=== PATIENT | male | born 1985 | race Two or more races ===

== ENCOUNTER 2019-05-11 04:27 | Emergency (ER) | payer OTHER ==
--- NOTE | 2019-05-11 05:00 | PDOC ---
History of Present Illness - General Chief Complaint: Pain Stated Complaint: VOMITING Time Seen by Provider: 05/11/19 04:59 History Source: Patient Exam Limitations: No Limitations - History of Present Illness Initial Comments: 05/11/19 05:15 33 year old male c/o upper abdominal discomfort, nausea , vomiting and diarrhea since last night, patient reports that he has uri symptoms for a week and has a cough. c/o left lower rib pain. denies fever/ chills. Patient BIB EMS for evaluation. denies chest pain, diaphoresis. Treatment Prior to Arrive: improves with: other (EKG: Sinus tachycardia : 116bpm) Past History - Travel Traveled outside of the country in the last 30 days: Yes Close contact w/someone who was outside of country & ill: No - Past Medical History Allergies/Adverse Reactions: Allergies Allergy/AdvReac Type Severity Reaction Status Date / Time No Known Allergies Allergy Verified 05/11/19 05:01 - Psycho Social/Smoking Cessation Hx Smoking Status: No Smoking History: Never smoked Review of Systems - Review of Systems Able to Perform ROS?: Yes Is the patient limited Slovenian proficient: No Constitutional: No: Symptoms Reported, See HPI, Chills, Diaphoresis, Fever, Loss of Appetite, Malaise, Night Sweats, Weakness, Weight Stable, Unintentional Wgt. Loss, Unexplained wgt Loss, Other Cardiac (ROS): Yes: Other (rib pain) ABD/GI: Yes: Nausea, Vomiting, Abdominal cramping *Physical Exam - Vital Signs 05/11/19 05:28 Vital Signs Temp Pulse Resp BP Pulse Ox 97.8 F 92 H 20 143/73 97 05/11/19 04:27 05/11/19 04:27 05/11/19 04:27 05/11/19 04:27 05/11/19 04:27 - Physical Exam General Appearance: Yes: Appropriately Dressed Respiratory/Chest: positive: Chest Tender (left lateral rib tenderness (bet 8-10 )), Lungs Clear, Normal Breath Sounds Cardiovascular: positive: Regular Rhythm, Regular Rate Gastrointestinal/Abdominal: positive: Soft, Increased Bowel Sounds. negative: Tender Musculoskeletal: positive: Normal Inspection Extremity: positive: Normal Capillary Refill, Normal Inspection, Normal Range of Motion Integumentary: positive: Normal Color, Dry, Warm Neurologic: positive: Fully Oriented, Alert, Normal Mood/Affect Heart Score/ECG Review - ECG Intrepretation Rhythm: Regular Rhythm Comment:: 05/11/19 06:18 NSR: 78 bpm ED Treatment Course - LABORATORY CBC & Chemistry Diagram: 05/11/19 05:35 05/11/19 05:35 ED Progress Note - Progress Note Progress Note: 05/11/19 05:30 A: gastroenteritis P: CBC CMP Normal saline zofran famotidine/ Medical Decision Making - Medical Decision Making 05/11/19 06:16 patient reports nausea . will give reglan 05/11/19 06:40 patient is currently tolerating PO. reports feeling better. will d/c home. Discharge - Discharge Information Problems reviewed: Yes Clinical Impression/Diagnosis: Gastroenteritis Condition: Fair Disposition: HOME - Follow up/Referral Referrals: Cecil Evans [Primary Care Provider] - - Patient Discharge Instructions Patient Printed Discharge Instructions: Gastroenteritis Diet Additional Instructions: Drink plenty of fluids start a BRAT ( bananas, rice apples toast) follow up with your doctor return to the ER if symptoms worsen - Post Discharge Activity Work/Back to School Note: Back to Work
[2019-05-11 05:01] VITALS: TEMP 97.8; BMI 26.4
[2019-05-11] MEDS ORDERED: ACETAMINOPHEN 325 MG TABLET (FP) PO ONE (05:12)
[2019-05-11] MEDS ORDERED: FAMOTIDINE 20 MG/50 ML IVPB 20 MG/50 ML MG IVPB ONE ×2 (05:12→05:19)
[2019-05-11] MEDS ORDERED: ONDANSETRON 4 MG/2 ML VIAL IVPB ONE (05:12)
[2019-05-11] MEDS ORDERED: SODIUM CHLORIDE 1,000 ML IV STA (05:12)
--- NOTE | 2019-05-11 05:17 | PDOC ---
*Physical Exam - Vital Signs Last Vital Signs Temp Pulse Resp BP Pulse Ox 97.8 F 92 H 20 143/73 97 05/11/19 04:27 05/11/19 04:27 05/11/19 04:27 05/11/19 04:27 05/11/19 04:27 ED Treatment Course - LABORATORY CBC & Chemistry Diagram: 05/11/19 05:35 05/11/19 05:35 Medical Decision Making - Medical Decision Making 05/11/19 05:17 Patient seen by the advanced practice provider under my direct supervision. Ancillary testing reviewed as necessary. I agree with plan as outlined by the advanced practice provider. Discharge - Discharge Information Problems reviewed: Yes Clinical Impression/Diagnosis: Gastroenteritis Condition: Fair Disposition: HOME - Follow up/Referral Referrals: Cecil Evans [Primary Care Provider] - - Patient Discharge Instructions Patient Printed Discharge Instructions: Gastroenteritis Diet Additional Instructions: Drink plenty of fluids start a BRAT ( bananas, rice apples toast) follow up with your doctor return to the ER if symptoms worsen - Post Discharge Activity Work/Back to School Note: Back to Work
[2019-05-11] MEDS ORDERED: ONDANSETRON 4 MG/2 ML VIAL ONE (05:19)
[2019-05-11] MEDS ORDERED: ACETAMINOPHEN 325 MG TABLET (FP) ONE (05:19)
[2019-05-11] MEDS ORDERED: METOCLOPRAMIDE HCL INJECTION 10 MG/2 ML VIAL IVPB ONE (06:10)
[2019-05-11 06:11] LABS: ALBUMIN 4.2 g/dl (3.4-5.0); BILIRUBIN,TOTAL 0.6 mg/dL (0.2-1); BLOOD UREA NITROGEN 14.6 mg/dL (7-18); CALCIUM 9.2 mg/dL (8.5-10.1); CREATININE 1.1 mg/dL (0.55-1.3); POTASSIUM 4.2 mmol/L (3.5-5.1); TOT PROT 8.3 g/dl (6.4-8.2)
[2019-05-11] MEDS ORDERED: METOCLOPRAMIDE HCL INJECTION 10 MG/2 ML VIAL ONE (06:14)
[2019-05-11 06:25] LABS: BASO % 0.4 % (0-2.0); EOS % 0.9 % (0-4.5); HEMATOCRIT 45.8 % (35.4-49); HEMOGLOBIN 16.7 GM/dL (11.7-16.9); LYMPH % 13.4 % (8-40); MCH 32.8 pg (25.7-33.7); MCHC 36.4 g/dl (32.0-35.9); MEAN CELL VOLUME 90.1 fl (80-96); MEAN PLT VOLUME 7.8 fl (7.5-11.1); MONO % 6.3 % (3.8-10.2); PLATELET COUNT 320 K/MM3 (134-434); RBC 5.08 M/mm3 (4.00-5.60); RDW 12.9 % (11.9-15.9)
[2019-05-11 07:01] VITALS: BP 135/76; PULSE 84
--- NOTE | 2019-05-11 12:22 | EKG ---
Test Reason : Blood Pressure : / mmHG Vent. Rate : 078 BPM Atrial Rate : 078 BPM P-R Int : 158 ms QRS Dur : 076 ms QT Int : 380 ms P-R-T Axes : 052 019 023 degrees QTc Int : 433 ms NORMAL SINUS RHYTHM NORMAL ECG NO PREVIOUS ECGS AVAILABLE Confirmed by JACOB GOULD, CHANDLER ([id number]) on 05/11/2019 12:22:27 PM Referred By: Confirmed By:CHANDLER JAMES MD
== END 2019-05-11 06:59 | disposition home or self-care (01) ==
LOC: JER 04:27
PROC: 3E033GC Introduction of Other Therapeutic Substance into Peripheral Vein, Percutaneous Approach (ICD-10-PCS; principal; 2019-05-11)
DX: K52.9 Noninfective gastroenteritis and colitis, unspecified (principal)
CPT/HCPCS: 36415; 80053; 85025; 93005; 93010; 99283-25; J7030

== ENCOUNTER 2019-06-18 01:06 | Emergency (ER) | payer OTHER ==
[2019-06-18 01:58] VITALS: BP 116/83; PULSE 89; TEMP 98.7; BMI 31.2
--- NOTE | 2019-06-18 02:39 | PDOC ---
Attending Attestation - ED Attending Attestation I have performed the following: I have examined & evaluated the patient, The case was reviewed & discussed with the resident, I agree w/resident's findings & plan - HPI HPI: 06/18/19 02:38 P injured self; he was drunk and fell down some steps. - Physicial Exam PE: 06/18/19 06:00 Ambulating about the ER; A+Ox3 Pt in NAD Pt has a left eyebrow laceration. No other head or neck injuiry. - Medical Decision Making 06/18/19 04:46 Referring Physician: MARY WITT Patient Name: NACHO VOGT THIS IS A PRELIMINARY REPORT FROM [facility] DATE OF SERVICE: 2019-06-18 02:53:47 IMAGES: [id number] EXAM: HEAD CT WITHOUT CONTRAST HISTORY: Rule out bleed or fracture COMPARISON: None. FINDINGS: The ventricular system is midline and nondilated. The sulcal pattern is normal for the patient's age. There is no bleed, mass, extra-axial fluid collection or mass effect. No skull fracture or skull lesion is identified. The mastoid air cells are clear. Multifocal sinus mucosal thickening is noted predominating in the right maxillary sinus which could represent chronic sinusitis. IMPRESSION: No acute traumatic pathology. Possible chronic sinusitis. 06/18/19 04:47 Patient Name: NACHO VOGT THIS IS A PRELIMINARY REPORT FROM [facility] DATE OF SERVICE: 2019-06-18 02:53:47 IMAGES: [id number] EXAM: HEAD CT WITHOUT CONTRAST HISTORY: Rule out bleed or fracture COMPARISON: None. FINDINGS: The ventricular system is midline and nondilated. The sulcal pattern is normal for the patient's age. There is no bleed, mass, extra-axial fluid collection or mass effect. No skull fracture or skull lesion is identified. The mastoid air cells are clear. Multifocal sinus mucosal thickening is noted predominating in the right maxillary sinus which could represent chronic sinusitis.
--- NOTE | 2019-06-18 05:13 | PDOC ---
History of Present Illness - General Chief Complaint: Injury Stated Complaint: FALL/INTOX Time Seen by Provider: 06/18/19 01:49 - History of Present Illness Initial Comments: 06/19/19 22:46 33 m no pmh presenting to ED intoxicated after a fall down 10 steps. Patient and witnesses with the patient deny loc. Patient complains of laceration to left brow ridge. Denies headaches lightheadedness dizziness. Denies numbness tingling weakness. Denies fevers chills chest pain shortness of breath palpitations abdominal pain nausea or vomiting. 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 Unknown last tetanus. Nkda. Past History - Past Medical History Allergies/Adverse Reactions: Allergies Allergy/AdvReac Type Severity Reaction Status Date / Time No Known Allergies Allergy Verified 06/18/19 01:54 Home Medications: Ambulatory Orders NK [No Known Home Medication] 06/18/19 COPD: No - Psycho Social/Smoking Cessation Hx Smoking Status: No Smoking History: Never smoked Have you smoked in the past 12 months: No Information on smoking cessation initiated: No Hx Alcohol Use: No Drug/Substance Use Hx: No Review of Systems - Review of Systems Comments:: 06/19/19 22:46 CONSTITUTIONAL: Denies F / C HEENT: Endorses head trauma. Denies headache, lightheadedness, dizziness, changes in vision / hearing, diplopia, blurry vision, sore throat, rhinorrhea RESP: Denies SOB, cough, orthopnea, CHENEY CARD: Denies chest pain, palpitations GI: Denies N / V / D, abdominal pain, bloody stool, inability to tolerate PO : Denies dysuria, hematuria, frequency SKIN: Denies rashes NEURO: Denies numbness, tingling, weakness MSK: Denies back pain *Physical Exam - Vital Signs Last Vital Signs Temp Pulse Resp BP Pulse Ox 98.7 F 89 20 116/83 98 06/18/19 01:15 06/18/19 01:15 06/18/19 01:15 06/18/19 01:15 06/18/19 01:15 - Physical Exam 06/19/19 22:46 GEN: Well appearing, NAD, comfortable. AAOx3 HEENT: 1cm laceration to the lateral aspect of the left brow ridge otherwise no other signs of trauma or deformities. CN II-XII intact, EOMI, PERRLA. No facial asymmetry. Moist mucous membranes. Normal voice. Supple neck w/ FROM, no midline TTP. CV: S1/S2, RRR, no m/r/g LUNG: CTAB, no wheezes, crackles, rales, rhonchi. GI: soft, ndnt, +BS, no guarding, no rebound. No masses. Neg CVAT b/l. EXTREMITIES: 2+ distal pulses. No LE edema. No obvious deformities of all extremities. SKIN: warm, dry, normal turgor PSYCH: normal mood and affect NEURO: Moving all extremities well. FROM UE and LE b/l. 5/5 bicep/tricep/swedger strength b/l. 5/5 UE strength b/l. 5/5 LE strength b/l. Sensation symmetric and intact throughout. Ambulates w/ normal gait. BACK: No obvious deformities, no step offs, no midline TTP. No signs of trauma. Procedures - Laceration/Wound Repair Left Lateral Face Wound Length: to 2.5 cm Wound Explored: contaminated Wound's Depth, Shape: linear Irrigated w/ Saline: Yes Betadine Prep: No Wound Debrided: minimal Wound Repaired With: Dermabond Progress: 06/19/19 22:47 laceration pressure irrigated w/ sterile water dermabond used to repair laceration; moderate to good approximation was achieved pt tolerated procedure well Medical Decision Making - Medical Decision Making 06/18/19 05:08 33M w/ laceration to the left brow ridge s/p fall 2/[address] head and facial bones lac repair no acute pathology on CT laceration repaired boostrix DC home w/ PCP f/u Discharge - Discharge Information Problems reviewed: Yes Clinical Impression/Diagnosis: Laceration Condition: Improved Disposition: HOME - Follow up/Referral Referrals: Cecil Evans [Primary Care Provider] - - Patient Discharge Instructions Patient Printed Discharge Instructions: DI for Laceration Repair With Dermabond Additional Instructions: Follow up with your primary care doctor in the next 7 days regarding this visit Keep the wound dry for the next 24 hours. Avoid scrubbing the area. Return to the Emergency Department if you experience fevers, chills, worsening pain. - Post Discharge Activity Work/Back to School Note: Back to Work
[2019-06-18] MEDS ORDERED: DIPHTH,PERTUSS(ACELL),TET 0.5 ML DISP.SYRIN IM ONE ×2 (06:12→06:36)
== END 2019-06-18 06:42 | disposition home or self-care (01) ==
LOC: JER 01:06
PROC: 3E0234Z Introduction of Serum, Toxoid and Vaccine into Muscle, Percutaneous Approach (ICD-10-PCS; principal; 2019-06-18)
PROC: 0HQ1XZZ Repair Face Skin, External Approach (ICD-10-PCS; 2019-06-18)
DX: F10.120 Alcohol abuse with intoxication, uncomplicated (principal); S01.112A Laceration without foreign body of left eyelid and periocular area, initial encounter; W10.8XXA Fall (on) (from) other stairs and steps, initial encounter; Y93.89 Activity, other specified; Y92.018 Other place in single-family (private) house as the place of occurrence of the external cause; Y99.8 Other external cause status
CPT/HCPCS: 70450-TC; 70486-TC; 90715; 99282-25

== ENCOUNTER 2021-02-04 21:10 | Emergency (ER) | payer SELFPAY ==
[2021-02-04 21:16] VITALS: BP 120/79; PULSE 93; TEMP 98.5; BMI 25.2
[2021-02-04] MEDS ORDERED: IBUPROFEN 600 MG TABLET (FP) PO ONE ×2 (21:19→21:20)
== END 2021-02-04 22:38 | disposition home or self-care (01) ==
LOC: FER 21:10
DX: S86.012A Strain of left Achilles tendon, initial encounter (principal); X50.0XXA Overexertion from strenuous movement or load, initial encounter; Y93.67 Activity, basketball
CPT/HCPCS: 76882-TC-LT; 99284-25